=== PATIENT | male | born 1945 | race Caucasian/White ===

== ENCOUNTER → 2016-05-26 | Outpatient (CLI) | payer MEDICARE ==
[~2016-05-26] MED LIST: ALLEGRA PO; ASPIRIN PO; ATENOLOL PO; AVANDAMET 4 MG/1 TAB PO; CERTAGEN PO; COZAAR PO; FISH OIL 1,0001 CAP PO; FLOMAX0.4 MG PO; FLONASE16 GM; JANUMET PO; KLOR-CON PO; LANTUS; LASIX PO; LIPITOR PO; SITAGLIPTIN PO; STARLIX PO; ZYLOPRIM PO; [UNRECOGNIZED DRUG - OTHER] PO
[2016-05-26 10:14] LABS: BLOOD UREA NITROGEN 14 mg/dL (9-23); BUN/CREATININE RATIO 15.55; CALCIUM SERUM 8.6 mg/dL (8.4-10.2); CARBON DIOXIDE 30 mmol/L (22-31); CHLORIDE 102 mmol/L (100-111); CREATININE SERUM 0.9 mg/dL (0.6-1.4); GLOM FILT RATE Estimated ABOVE60 mL/min (>60); GLUCOSE FASTING 303 mg/dL (70-110); POTASSIUM 4.2 mmol/L (3.5-5.1); SODIUM 138 mmol/L (135-145)
== END | disposition home or self-care (01) ==
LOC: SLAB 09:40
PROVIDERS: Surgery Vascular Surgery
DX: T82.330A Leakage of aortic (bifurcation) graft (replacement), initial encounter (principal)
CPT/HCPCS: 36415; 80048

== ENCOUNTER → 2016-06-02 | Outpatient (CLI) | payer MEDICARE ==
--- NOTE | ~2016-06-02 | CT14 ---
[facility] A Service of [facility] & [facility] RADIOLOGY TEXT RESULTS PATIENT: TIM TSE LOCATION: [facility] : 49 UNIT #: [id number] AGE: [address]: David Ceballos MD SEX: M ORDER DR: [id number] [place] [id number] O MR#: [id number] [facility] #: [id number] NAME: TIM TSE : 1945 SEX: M STUDY DATE/TIME: 06/02/2016 8:16 UNIT: [facility] ROOM: STUDY DESCRIPTION: CT Angio Abdomen and Pelvis Attending Physician: David Ceballos M.D. Referring Physician: David Ceballos M.D. Ordering Physician: David Ceballos M.D. Primary Care Physician: Manuel Cavazos M.D. MEDICAL IMAGING REPORT This report is preliminary unless electronic signature is present. EXAM CT angiogram of the abdomen and pelvis INDICATIONS Aneurysm repair on April 19, 2016, this is a followup study. TECHNIQUE Axial CT imaging was obtained through the abdomen and pelvis following the administration of intravenous contrast material. Following this, 3-D reformatted images were obtained. This CT exam was performed with one or more of the following radiation dose reduction techniques: Automatic exposure control, adjustment of mA and/or kV according to patient size, and iterative reconstruction. FINDINGS On prior study, patient was noted to have persistent supply to the inferior aspect of the aneurysm sac via the aneurysmally dilated left common iliac artery. 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 It was new when compared to an exam from 2015. Since the prior examination, an additional left-sided stent graft has been deployed into the left common iliac artery with no residual extension into the aneurysm sac. Aneurysm sac is smaller on today's study at 6.0 x 5.8 cm, previously 6.4 x 6.0 cm on March 25, 2015. No other definite endoleak is seen on today's exam. Patient does have some atherosclerotic plaque seen at the origin of the celiac axis and superior mesenteric artery without definite flow-limiting stenosis. There is a single right renal artery and 2 left renal arteries, both of which appear to be patent. 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 Patient does have atherosclerotic plaque within the common femoral and visualized portions of the profunda femoris and superficial femoral arteries, although I am not convinced this really results in any flow-limiting stenosis. [facility] A Service of [facility] RADIOLOGY TEXT RESULTS PATIENT: TIM TSE LOCATION: [facility] : 49 UNIT #: [id number] AGE: [address]: David Ceballos MD SEX: M ORDER DR: There are coronary artery calcifications. Images through the lung bases demonstrate background emphysematous changes. Patient has a noncalcified pulmonary nodule identified within the right lower lobe which has been unchanged since June 2014, and thus is benign. Liver and gallbladder appear unremarkable, as are the spleen, stomach and proximal small bowel. Adrenal glands are within normal limits. Pancreas is atrophic. There is a small fat-containing umbilical hernia. There is colonic diverticulosis without evidence of diverticulitis. Patient's prostate gland is enlarged and protrudes into the base of the bladder and there is some distension of the urinary bladder, which may reflect some degree of bladder outlet obstruction. Review of bony windows does not demonstrate any aggressive osseous abnormalities. IMPRESSION 1. Since prior study, patient underwent deployment of a new stent graft within the left common iliac artery. The patient's infrarenal abdominal aortic aneurysm has diminished in size and now measures 6.0 x 5.8 cm, previously 6.4 x 6.0 cm. 2. 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 I do not see any convincing evidence of residual endoleak on today's study. 3. 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 Please see the body of the report for any other additional incidental findings. Dictated by... Tamela Alvarez M.D. THIS IS AN ELECTRONICALLY VERIFIED REPORT Tmaela Alvarez M.D. at 06/03/2016 5:58 PM AFF/psc TD: 06/02/2016 23:02 JOB #: [id number] MEDICAL IMAGING REPORT Page 1 of 1
== END | disposition home or self-care (01) ==
LOC: SCT 07:57
DX: T82.330A Leakage of aortic (bifurcation) graft (replacement), initial encounter (principal); I71.4 Abdominal aortic aneurysm, without rupture; I72.3 Aneurysm of iliac artery
CPT/HCPCS: 74174; Q9967

== ENCOUNTER → 2016-12-02 | Outpatient (CLI) | payer MEDICARE ==
[2016-12-02 12:41] LABS: BUN/CREATININE RATIO 27.5; CALCIUM SERUM 8.7 mg/dL (8.4-10.2); CREATININE SERUM 0.8 mg/dL (0.6-1.4); GLOM FILT RATE Estimated 91.2 mL/min (>60); POTASSIUM 4.5 mmol/L (3.5-5.1)
== END | disposition home or self-care (01) ==
LOC: SLAB 11:53
PROVIDERS: Surgery Vascular Surgery
DX: T82.330A Leakage of aortic (bifurcation) graft (replacement), initial encounter (principal); I71.4 Abdominal aortic aneurysm, without rupture
CPT/HCPCS: 36415; 80048